=== PATIENT | female | born 1960 | race Caucasian/White ===

== ENCOUNTER 2020-02-01 17:50 | Emergency (ER) | payer MEDICAID ==
[~2020-02-01] VITALS: Ht 162.6 cm; Wt 72.7 kg
[2020-02-01 17:58] VITALS: Ht 162.6 cm; Wt 72.7 kg
[2020-02-01] MEDS ORDERED: RISPERDAL1 MG (17:58)
[2020-02-01] MEDS ORDERED: ZOLOFT25 MG (17:59)
[2020-02-01] MEDS ORDERED: TYLENOL #4 W/CO1 TAB PO (19:03)
[2020-02-01 19:11] VITALS: BP 122/77
== END 2020-02-01 19:25 | disposition home or self-care (01) ==
LOC: D.ER 17:50
DX: S93.402A Sprain of unspecified ligament of left ankle, initial encounter (principal); S40.022A Contusion of left upper arm, initial encounter; W01.0XXA Fall on same level from slipping, tripping and stumbling without subsequent striking against object, initial encounter; Y93.9 Activity, unspecified; Y92.9 Unspecified place or not applicable